=== PATIENT | female | born 1940 | race Caucasian/White ===

== ENCOUNTER 2016-09-08 17:20 | Emergency (ER) | payer BC ==
[2016-09-08 14:37] LABS: BASOPHILS 0.2 %; BASOPHILS ABSOLUTE 0.01 10/3/uL (0.0-0.16); HEMATOCRIT 42.1 % (36.0-48.0); HEMOGLOBIN 14.5 g/dL (12.0-16.0); IMMATURE GRANULOCYTES 0.2 %; IMMATURE GRANULOCYTES ABSOLUTE 0.01 10/3/uL (0.0-0.11); LYMPHOCYTES 36.9 %; MANUAL DIFF NO %; MEAN CORPUS HGB CONC 34.4 g/dL (32.0-36.0); MEAN CORPUSCULAR HEMOGLOB 31.7 pg (26.0-34.0); MEAN CORPUSCULAR VOLUME 91.9 fL (80-100); MEAN PLATELET VOLUME 9.9 fL (9.2-13.0); MONOCYTES 6.4 %; MONOCYTES ABSOLUTE 0.31 10/3/uL (0.21-1.20); NEUTROPHILS 54.3 %; NEUTROPHILS ABSOLUTE 2.65 10/3/uL (2.02-8.40); PLATELET COUNT 174 10/3/uL (150-400); RBC DISTRIBUTION WIDTH 13.6 % (12.0-16.0); RED CELL COUNT 4.58 10/6/uL (4.0-5.6); WHITE BLOOD CELLS 4.9 10/3/uL (4.5-10.5)
[2016-09-08 14:43] LABS: INTERNATIONAL NORMAL RATI 2.4 UNITS (-)
[2016-09-08 14:44] LABS: PARTIAL THROMBO TIME 75.8 SEC (22.5-37.2); PROTIME (NOT ORD) 25.8 SEC (12.0-14.5)
[2016-09-08 14:55] LABS: BUN (BLOOD UREA NITROGEN) 6 MG/DL (6-23); CHEST PAIN PROFILE TAT 0 Hrs 24 Mins; CHLORIDE, SERUM 107 MMOL/L (96-112); CO2 (CARBON DIOXIDE) 31 MMOL/L (24-34); CREATININE 0.58 MG/DL (0.55-1.02); GFR AFRICAN AMERICAN 102 ML/MIN (>=60); GFR NON AFRICAN AMERICAN 88 ML/MIN (>=60); GLUCOSE, SERUM 96 MG/DL (60-99); POTASSIUM, SERUM 3.7 MMOL/L (3.5-5.3); SODIUM, SERUM 143 MMOL/L (135-148); TROPONIN I <0.02 NG/ML (<0.05)
[~2016-09-08 17:20] MED LIST: ACCU20 PO; BETAPACE80 PO; CEFT2 PO; ELIQUIS 2.5 MG2.5 MG PO; EYE CAPS VITAMIN PO; LUMIGAN OPH; MEVACOR10 MG PO; NORV5 PO; PRADAXA150 MG PO; Z100 PO
== END 2016-09-08 17:34 | disposition home or self-care (01) ==
LOC: ER 17:20
PROVIDERS: Emergency Medicine
DX: R07.89 Other chest pain (principal); I10 Essential (primary) hypertension; I48.91 Unspecified atrial fibrillation; E11.9 Type 2 diabetes mellitus without complications; Z95.0 Presence of cardiac pacemaker; Z79.899 Other long term (current) drug therapy
CPT/HCPCS: 71020; 80048; 83735; 84484; 85025; 85610; 85730; 93005; 99285